=== PATIENT | male | born 1995 | race African-American/Black ===

== ENCOUNTER 2019-02-18 17:18 | Inpatient (IN) | payer OTHER ==
[~2019-02-18 17:18] MED LIST: ISOVUE-370 76%-LOCM 1 ML ONE
[2019-02-18] MEDS ORDERED: Ondansetron PF 4 MG/2 ML Vial ONE (17:44)
[2019-02-18] MEDS ORDERED: Morphine 4 MG/ML VIAL ONE (17:50)
[2019-02-18] MEDS ORDERED: Ketorolac Tromethamine 30 MG/ML VIAL ONE (18:00)
[2019-02-18 18:16] LABS: #Lymphocytes 1.6 thou/uL (1.20-3.40); #Monocytes 0.8 thou/uL (0.11-0.59); #Neutrophils 5.4 thou/uL (1.40-6.50); %Basophils 0.5 % (0.0-1.0); %Eosinophils 0.4 % (0.0-10.0); %Monocytes 10.3 % (0.0-10.0); %Neutrophils 68.7 % (42.0-75.0); Hemoglobin 12.2 g/dL (14.0-18.0); Mean Corpuscular Hemoglobin 27.3 pg (27.0-31.0); Mean Corpuscular Volume 85.2 fL (78.0-98.0); Platelet Count 292 thou/uL (130-400); RBC Distribution Width 13.7 % (11.5-14.5); Red Blood Cell (RBC) Count 4.47 mill/uL (4.70-6.10); White Blood Cell (WBC) Count 7.8 thou/uL (4.8-10.8)
[2019-02-18 18:28] LABS: ALT (SGPT) 7 U/L (8-55); AST (SGOT) 20 U/L (5-34); Albumin 4.7 g/dL (3.5-5.0); Alkaline Phosphatase 119 U/L (40-150); Anion Gap 18 mmol/L (10-20); BUN (Urea Nitrogen) 12 mg/dL (8.9-20.6); Calc. Creatinine Clearance 0 mL/min (70-130); Calcium 9.9 mg/dL (7.8-10.44); Carbon Dioxide 21 mmol/L (22-29); Chloride 106 mmol/L (98-107); Estimated GFR-MDRD Greater than 90; Globulin 2.8 g/dL (2.4-3.5); Glucose 102 mg/dL (70-105); Lipase 700 U/L (8-78); Potassium 3.5 mmol/L (3.5-5.1); Protein, Total 7.5 g/dL (6.0-8.3); Sodium 141 mmol/L (136-145)
[2019-02-18] MEDS ORDERED: Haloperidol Lactate 5 MG/ML VIAL ONE (19:13)
[2019-02-18] MEDS ORDERED: diphenhydrAMINE 50 MG/ML VIAL ONE (19:13)
[2019-02-18 19:54] LABS: Clarity CLEAR (Clear); Nitrite Negative (Negative); Specific Gravity, Urine 1.015 (1.005-1.030)
[2019-02-18 19:55] LABS: Bilirubin Negative (Negative); Blood, Urine Negative (Negative); Glucose, Urine (Dipstick) Negative (Negative); Protein, Urine (Dipstick) Negative (Neg-Trace)
[2019-02-18 20:00] LABS: Leukocyte Negative (Negative)
[2019-02-18 20:08] LABS: Bacteria/HPF None Seen HPF (None Seen); Hyaline Casts/LPF NONE SEEN LPF (0-3 Hyaline); RBC/HPF None Seen HPF (0-3); Squamous Epithelial 0-3 HPF (0-3); WBC/HPF None Seen HPF (0-3)
--- NOTE | 2019-02-18 20:28 | CT ---
CT ABDOMEN AND PELVIS WITH IV CONTRAST: Technique: Multiple axial tomograms were obtained through the abdomen and pelvis with IV enhancement. Indications: Fever, abdominal pain. FINDINGS: Lung bases clear. Patient is post cholecystectomy. There is mild intrahepatic biliary duct prominence. The extrahepatic bile duct appears normal. Correlate with liver function test. Spleen and pancreas unremarkable. Adrenal glands and kidneys unremarkable. Urinary bladder is distended and appears unremarkable. Small bowel loops are normal caliber. There is radiopaque suture within the herrera of a small bowel lo op anterior mid abdomen which may represent adjacent gastric jejunostomy anastomosis. Recommend clini bonita correlation regarding surgical history of bypass in this patient. There is focal dilatation of the colon at the splenic flexure of uncertain significance. The more distal left colon and sigmoid colon is nondistended. Images through the pelvis unremarkable. No adenopathy identified. IMPRESSION: 1. Patient is post cholecystectomy. There is mild intrahepatic biliary duct dilatation of uncertain s ignificance. Recommend correlation with liver function test. 2. Evidence of post-operative changes involving small bowel and stomach in the anterior abdomen. Richard mmend clinical correlation regarding surgical history. 3. Focal dilatation of the colon at the splenic flexure with prominent stool in this part of the colo n. No evidence of mural thickening or inflammation. Recommend clinical correlation. POS: AGW
--- NOTE | 2019-02-18 20:45 | PDOC.FPRHP ---
- History of Present Illness Chief Complaint: abdominal pain History of Present Illness: 23yo freedom impaired male with pmh of chronic pancreatitis presents with 1 day hx of diffuse abdominal pain of "unexplainable" quality and 8/10 on presentation now 2-3/10 after some morphine. Onset was after a meal. Also reports related Nausea/vomiting/decreased PO intake. No upper or lower GIB. No other transforming factors. Denies any other complaints as listed in ROS. Pt was s/p morphine, haldol, and benadryl in ED and was thus a difficult historian and unable to provide much medical hx. Mostly gained from [facility] chart review. ED Course: 3L NS, morphine, zofran, phenergan, toradol, haldol, benadryl - Allergies/Adverse Reactions Allergies Allergy/AdvReac Type Severity Reaction Status Date / Time No Known Drug Allergies Allergy Verified 02/18/19 22:13 - Home Medications Medication Instructions Recorded Confirmed Type Ferrous Sulfate [Feosol] 325 mg PO TID 02/18/19 02/18/19 History Pancrelipase 50098 [Creon DR 1 capsule PO TID-WM 02/18/19 02/18/19 History 12,000 Units] Sucralfate [Carafate] 1 gm PO TID 02/18/19 02/18/19 History Ondansetron HCl [Zofran] 4 mg PO Q6HR PRN #20 tab 02/20/19 Rx - History PMHx: SMA, iron deficiency anemia, chronic pancreatitis, latent syphillis PSHx: gastric bypass surgery (unknown reason, not weight loss) FHx: non contributory Social: Incarcerated inmate. no smoking, former marijuana use, no alcohol. Allergy: NKDA CODE: FULL - Review of Systems General: denies: night sweats, fatigue Eyes: denies: eye pain, vision changes ENT: denies: nasal congestion, rhinorrhea Respiratory: denies: cough, shortness of breath Cardiovascular: denies: chest pain, edema Gastrointestinal: reports: nausea, vomiting, abdominal pain Genitourinary: denies: dysuria, polyuria Skin: denies: lesions, jaundice Musculoskeletal: denies: pain, tenderness Neurological: denies: syncope, seizure Psychological: denies: anxiety, depression - Vital signs BP: 141/107, Pulse: 91, Resp: 14, Temp: 99.8 (Oral), Pain: 5, O2 sat: 98 on Room Air, Time: 02/18/2019 19:15. weight: 70kg - Physical Exam Constitutional: awake, alert and oriented, other (moderate distress 2/2 pain) HEENT: EOMI, conjunctiva clear, grossly normal vision, grossly normal hearing, MMM Neck: supple, trachea midline Chest: no-tender to palpation Heart: RRR, normal S1/S2 Lungs: CTAB, no respiratory distress Abdomen: soft, other (moderate epigastric TTP, no rebound tenderness no guarding ) Musculoskeletal: normal structure, normal tone Neurological: no focal deficit, normal sensation Skin: no rash/lesions, good turgor Heme/Lymphatic: no purpura, no petechia Psychiatric: normal mood and affect, intact recent and remote memory FMR H&P: Results - Labs Result Diagrams: 02/20/19 07:39 02/18/19 18:05 Lab results: WBC 7.8 thou/uL (4.8-10.8) 02/18/19 18:05 Hgb 12.2 g/dL (14.0-18.0) L 02/18/19 18:05 Hct 38.1 % (42.0-52.0) L 02/18/19 18:05 MCV 85.2 fL (78.0-98.0) 02/18/19 18:05 Plt Count 292 thou/uL (130-400) 02/18/19 18:05 Neutrophils % 68.7 % (42.0-75.0) 02/18/19 18:05 Sodium 141 mmol/L (136-145) 02/18/19 18:05 Potassium 3.5 mmol/L (3.5-5.1) 02/18/19 18:05 Chloride 106 mmol/L (98-107) 02/18/19 18:05 Carbon Dioxide 21 mmol/L (22-29) L 02/18/19 18:05 BUN 12 mg/dL (8.9-20.6) 02/18/19 18:05 Creatinine 1.17 mg/dL (0.7-1.3) 02/18/19 18:05 Glucose 102 mg/dL (70-105) 02/18/19 18:05 Lactic Acid 3.3 mmol/L (0.5-2.2) H 02/18/19 18:05 Calcium 9.9 mg/dL (7.8-10.44) 02/18/19 18:05 Total Bilirubin 1.0 mg/dL (0.2-1.2) 02/18/19 18:05 AST 20 U/L (5-34) 02/18/19 18:05 ALT 7 U/L (8-55) L 02/18/19 18:05 Alkaline Phosphatase 119 U/L (40-150) 02/18/19 18:05 Serum Total Protein 7.5 g/dL (6.0-8.3) 02/18/19 18:05 Albumin 4.7 g/dL (3.5-5.0) 02/18/19 18:05 Lipase 700 U/L (8-78) H 02/18/19 18:05 Urine Ketones 80 mg/dL (Negative) H 02/18/19 19:32 Urine Blood Negative (Negative) 02/18/19 19:32 Urine Nitrite Negative (Negative) 02/18/19 19:32 Ur Leukocyte Esterase Negative (Negative) 02/18/19 19:32 Urine RBC None Seen HPF (0-3) 02/18/19 19:32 Urine WBC None Seen HPF (0-3) 02/18/19 19:32 Ur Squamous Epith Cells 0-3 HPF (0-3) 02/18/19 19:32 Urine Bacteria None Seen HPF (None Seen) 02/18/19 19:32 FMR H&P: A/P - Problem List (1) Pancreatitis Status: Acute Code(s): K85.90 - ACUTE PANCREATITIS WITHOUT NECROSIS OR INFECTION, UNSP (2) Fever Status: Acute Code(s): R50.9 - FEVER, UNSPECIFIED (3) Superior mesenteric artery syndrome Status: Acute Code(s): K55.1 - CHRONIC VASCULAR DISORDERS OF INTESTINE (4) Chronic pancreatitis Status: Acute Code(s): K86.1 - OTHER CHRONIC PANCREATITIS (5) Latent syphilis Status: Acute Code(s): A53.0 - LATENT SYPHILIS, UNSPECIFIED EARLY OR LATE - Plan Acute on chronic pancreatitis A- hx of chronic pancreatitis [facility], pt unable to give any details of disease. Lipase and physical exam indicate acute exacerbation though CT is unremarkable. P- morphine prn -aggressive IVF -LDH to calculate ZAK criteria -NPO, possibly advance diet slowly tomorrow Fever A- one fever up to 100.9 that spontaneously resolved, sirs + likely 2/2 pancreatits and pain, CT shows no evidence of infectious etiology, exam unremarkable P- will get procal and monitor vitals -if fever again, will get BCx and start ABX iron deficiency anemia A- hgb 12.2, [facility] records report iron deficiency anemia P- will monitor h/h SMA syndrome -MD aware latent syphillis -MD aware CODE: full FMR H&P: Upper Level - Pertinent history 23 yr old male with PMH of chronic pancreatitis, SMA syndrome s/p gastric bypass with 1 day history of pain after eating [facility]. Pain improved to 2 /10 pain from 8/10 after pain meds in the ER. + Nausea and vomiting. No diarrhea. Non bloody vomit. Had multiple bouts of vomiting in ER which improved after 2 doses of phenergan, zofran, hadol and benadryl. Afebrile. Also hx of iron def anemia. Patient denies chest pain, SOB, coughing, dysuria. - Pertinent findings Pulse: 65 Temp: 97.5 Tmax 100.9 Gen: No acute distress, patient is very drowsy Heart: RRR, no M/R/G Lungs: CTAB, No wheezing, rhales, rhonchi. no resp distress Abd: soft, mild epigatric tenderness, no guarding or rebound Ext: no edema in BLE Neuro: drowsy but arrousable, oriented to person, place, and month/year. CT abd: mild intrahepatic duct dilatation, post cholecystectomy, focal dilatation of colon at splenic flexure with stool burden. - Plan Date/Time: 02/18/192044 I, [Nubia Barnett], have evaluated this patient and agree with findings/plan as outlined by internal combustion engine assembler resident. Pertinent changes/additions are listed here. 23 yr old male with PMH of SMA syndrome and chronic pancreatitis. acute on chronic pancreatitis -NPO until vomiting improved and initiate low fat diet -aggressive fluids -admit to medical obs -PRN meds for vomiting/nausea -will defer further workup request outside records -obtain LDH for zak criteria calculation however even if elevated, still a zak of 1 which is unlikely severe pancreatitis Fever -sirs criteria met -no focal findings for infection -CT without evidence for pancreatic cyst/abscess -if refevers, will obtain blood culture and empiric abx HX of SMA syndrome Dispo: likely > 2 midnights but dependent on clinica course. Addendum - Attending - Attending Attestation Date/Time: 02/22/19 0001 I personally evaluated the patient and discussed the management with Dr. Mae on 02/18/19. I agree with the History, Examination, Assessment and Plan documented above with any addition or exceptions noted below. 23 y.o. BM with h/o Chronic Pancreatitis, SMA syndrome s/p Gastric Bypass (Ladi- en-Y?) with abdominal pain, improved with Morphine. Lipase 700. Zak's 0 but no LDH done yet. NPO, IVF, analgesia prn.
[2019-02-18] MEDS ORDERED: Morphine 2 MG/ML SYRINGE SLOW IVP PRN (22:10)
[2019-02-18] MEDS: Lactated Ringer's 1,000 ML IV SCH (22:35)
[2019-02-18 23:04] LABS: Lactic Acid 0.8 mmol/L (0.5-2.2)
[2019-02-19] MEDS: Morphine 4 MG/ML VIAL SLOW IVP PRN ×4 (00:25→13:11)
[2019-02-19] MEDS: Ondansetron PF 4 MG/2 ML Vial IVP PRN ×2 (01:20→08:04)
[2019-02-19] MEDS: Lactated Ringer's 1,000 ML IV SCH ×5 (04:58→22:35)
--- NOTE | 2019-02-19 06:58 | PDOC.FM ---
- Subjective Subjective: Continuing to have nausea, vomiting and abdominal pain. Has hx of SMA syndrome that he reports feels the same as when he has pancreatitis. Reports he was told to gain weight which would resolve the symptoms. Pain is epigastric. Denies fever, chills. - Objective MAR Reviewed: Yes Vital Signs & Weight: Vital Signs (12 hours) Temp Pulse Resp BP Pulse Ox 02/19/19 04:02 99.6 F 87 16 155/83 H 100 02/18/19 21:50 98.6 F 120 H 18 124/86 99 Weight Weight 74.843 kg I&O: 02/17/19 02/18/19 02/19/19 06:59 06:59 06:59 Intake Total 1680 Output Total 1300 Balance 380 Result Diagrams: 02/19/19 07:58 02/18/19 18:05 Phys Exam - Physical Examination Vomiting HEENT: moist MMs Neck: supple Respiratory: no wheezing, clear to auscultation bilateral Cardiovascular: RRR, no significant murmur Gastrointestinal: soft, positive bowel sounds epigastric tenderness and LLQ tenderness Musculoskeletal: no edema Neurological: moves all 4 limbs Psychiatric: normal affect, A&O x 3 Skin: no rash Dx/Plan (1) Chronic pancreatitis Code(s): K86.1 - OTHER CHRONIC PANCREATITIS Status: Acute (2) Fever Code(s): R50.9 - FEVER, UNSPECIFIED Status: Acute (3) Latent syphilis Code(s): A53.0 - LATENT SYPHILIS, UNSPECIFIED EARLY OR LATE Status: Acute (4) Pancreatitis Code(s): K85.90 - ACUTE PANCREATITIS WITHOUT NECROSIS OR INFECTION, UNSP Status: Acute (5) Superior mesenteric artery syndrome Code(s): K55.1 - CHRONIC VASCULAR DISORDERS OF INTESTINE Status: Acute - Plan Plan: Mr Masters is a 23yo male with pmh of SMA syndrome, chronic pancreatitis and iron def anemia presenting with acute pancreatitis Acute on chronic pancreatitis - CT: nml pancreas, intrahepatic duct dilation - Lipase 700. Epigastric tenderness - Morphine PRN - LR @210 - ZAK: 0 - NPO Elevated Lactic Acid, resolved - Initially 3.3 Fever - Tmax 100.9 resolved, likely 2/2 pancreatits and pain, CT shows no evidence of infectious etiology - Procal pending - If fevers again, will get BCx and start ABX Iron deficiency anemia - Hgb 12.2, known hx of iron def anemia - Continue to monitor h/h SMA syndrome Latent syphillis Code Status: FULL DVT ppx: Lovenox PCP: J[facility], [facility] Addendum - Attending - Attending Attestation Date/Time: 02/19/19 [id number] I personally evaluated the patient and discussed the management with Dr. Lucero. I agree with the History, Examination, Assessment and Plan documented above with any addition or exceptions noted below. Pt has been tachycardic and has a leukocytosis. Will start zosyn. Draw blood cultures if he spikes fever. He notes pain worsens when he is vomiting. Will also add reglan. Get CXR to look for other signs of infection.
[2019-02-19] MEDS: Enoxaparin Sodium 40 MG/0.4 ML SYRINGE SC SCH (08:06)
[2019-02-19 08:13] LABS: #Eosinphils 0.1 thou/uL (0.0-0.7); #Monocytes 0.6 thou/uL (0.11-0.59); %Eosinophils 0.6 % (0.0-10.0); %Lymphocytes 8.3 % (21.0-51.0); %Monocytes 4.9 % (0.0-10.0); %Neutrophils 86.2 % (42.0-75.0); Hemoglobin 11.9 g/dL (14.0-18.0); Mean Corpuscular HGB CONC 31.7 g/dL (32.0-36.0); Mean Platelet Volume 8.9 fL (7.4-10.4); Platelet Count 237 thou/uL (130-400); RBC Distribution Width 13.8 % (11.5-14.5); Red Blood Cell (RBC) Count 4.41 mill/uL (4.70-6.10); White Blood Cell (WBC) Count 11.6 thou/uL (4.8-10.8)
[2019-02-19 09:22] LABS: RBC Morphology Normal
[2019-02-19] MEDS ORDERED: Metoclopramide 10 MG/10 ML UDCUP PO PRN (11:38)
[2019-02-19] MEDS: Piperacillin/Tazobactam 3.375 GM in Sodium Chloride 0.9% 100 ML IVPB SCH ×3 (13:09→23:46)
--- NOTE | 2019-02-19 15:08 | RAD ---
PA AND LATERAL CHEST: HISTORY: Cough. FINDINGS: Heart size and mediastinum are within normal limits. The lungs are clear of any infiltrates. No sig nificant bony findings. IMPRESSION: No active intrathoracic disease. POS: [facility]
[2019-02-20] MEDS: Piperacillin/Tazobactam 3.375 GM in Sodium Chloride 0.9% 100 ML IVPB SCH ×3 (05:42→17:09)
--- NOTE | 2019-02-20 06:51 | PDOC.FM ---
- Subjective Subjective: Feeling much better today. Reports the last time he vomited was yesterday morning. Would like to try some clear liquids this morning. Abdominal pain is improved. - Objective MAR Reviewed: Yes Vital Signs & Weight: Vital Signs (12 hours) Temp Pulse Resp BP Pulse Ox 02/20/19 04:00 97.9 F 71 18 111/67 100 02/19/19 20:00 97.7 F 75 18 109/62 98 Weight Weight 74.843 kg I&O: 02/18/19 02/19/19 02/20/19 06:59 06:59 06:59 Intake Total 1680 Output Total 1300 Balance 380 Result Diagrams: 02/20/19 07:39 02/18/19 18:05 Phys Exam - Physical Examination Constitutional: NAD HEENT: moist MMs Neck: supple Respiratory: no wheezing, clear to auscultation bilateral Cardiovascular: RRR, no significant murmur Gastrointestinal: soft, non-tender, positive bowel sounds Musculoskeletal: no edema Neurological: moves all 4 limbs Psychiatric: normal affect, A&O x 3 Skin: no rash Dx/Plan (1) Chronic pancreatitis Code(s): K86.1 - OTHER CHRONIC PANCREATITIS Status: Acute (2) Fever Code(s): R50.9 - FEVER, UNSPECIFIED Status: Acute (3) Latent syphilis Code(s): A53.0 - LATENT SYPHILIS, UNSPECIFIED EARLY OR LATE Status: Acute (4) Pancreatitis Code(s): K85.90 - ACUTE PANCREATITIS WITHOUT NECROSIS OR INFECTION, UNSP Status: Acute (5) Superior mesenteric artery syndrome Code(s): K55.1 - CHRONIC VASCULAR DISORDERS OF INTESTINE Status: Acute - Plan Plan: Mr Masters is a 23yo male with pmh of SMA syndrome, chronic pancreatitis and iron def anemia presenting with acute pancreatitis Sepsis - Tmax 100.[address] abd: No evidence of infection - Procal <0.02 - Started on Zosyn 02/19 after pt became tachycardic and developed leukocytosis - If fevers again, will get BCx and procal Acute on chronic pancreatitis - CT: nml pancreas, intrahepatic duct dilation - Lipase 700. Epigastric tenderness - Morphine PRN - LR @100 - ZAK: 0 - Advance to clear liquid diet Elevated Lactic Acid, resolved - Initially 3.3 Iron deficiency anemia - Hgb 12.2, known hx of iron def anemia - Continue to monitor h/h SMA syndrome Latent syphillis Code Status: FULL DVT ppx: Lovenox PCP: JIM, [facility] Addendum - Attending - Attending Attestation Date/Time: 02/20/19 [id number] I personally evaluated the patient and discussed the management with Dr. Lucero. I agree with the History, Examination, Assessment and Plan documented above with any addition or exceptions noted below. Pt is feeling much better. Will advance diet and if he tolerates this will likely d/c home.
[2019-02-20 07:58] LABS: #Lymphocytes 1.5 thou/uL (1.20-3.40); #Monocytes 0.8 thou/uL (0.11-0.59); #Neutrophils 3.6 thou/uL (1.40-6.50); %Basophils 0.3 % (0.0-1.0); %Eosinophils 0.4 % (0.0-10.0); %Lymphocytes 25.6 % (21.0-51.0); %Neutrophils 60.7 % (42.0-75.0); Hemoglobin 9.9 g/dL (14.0-18.0); Mean Corpuscular HGB CONC 30.9 g/dL (32.0-36.0); Mean Corpuscular Hemoglobin 27.1 pg (27.0-31.0); Mean Corpuscular Volume 87.6 fL (78.0-98.0); Mean Platelet Volume 7.6 fL (7.4-10.4); Platelet Count 269 thou/uL (130-400); RBC Distribution Width 13.5 % (11.5-14.5); Red Blood Cell (RBC) Count 3.65 mill/uL (4.70-6.10)
[2019-02-20] MEDS: Lactated Ringer's 1,000 ML IV SCH ×2 (08:59→09:00)
[2019-02-20] MEDS: Enoxaparin Sodium 40 MG/0.4 ML SYRINGE SC SCH (09:00)
[2019-02-20] MEDS ORDERED: Lactated Ringer's 1,000 ML IV SCH (10:15)
[2019-02-20 16:32] VITALS: BP 135/68; TEMP 98
--- NOTE | 2019-02-21 04:59 | DIS ---
DATE OF ADMISSION: 02/18/2019 DATE OF DISCHARGE: 02/20/2019 RESIDENT: Sivan Lucero, PGY-1. ADMITTING ATTENDING: DISCHARGE ATTENDING: Gely Welch MD CONSULTS: None. PROCEDURES: 1. Abdominal and pelvis CT: The patient is post cholecystectomy. There is mild intrahepatic biliary duct dilation of uncertain significance. Recommend correlation with liver function test. Evidence of postoperative changes involving small bowel and stomach in the anterior abdomen. Recommend clinical correlation regarding surgical history. Focal dilation of the colon at the splenic flexure with prominent stool in this part of the colon. No evidence of mural thickening or inflammation. Recommend clinical correlation. Study performed on 02/18/2019. 2. On 02/18/2019, chest x-ray unremarkable. PRIMARY DIAGNOSES: 1. Acute on chronic pancreatitis. 2. Sepsis versus reactive inflammation. SECONDARY DIAGNOSES: 1. Elevated lactic acid, resolved. 2. Iron deficiency anemia. 3. Superior mesenteric artery syndrome. 4. Latent syphilis. DISCHARGE MEDICATIONS: 1. Ferrous sulfate 325 mg t.i.d. 2. Zofran 4 mg q.6 hours p.r.n. for nausea, vomiting. 3. Creon one capsule t.i.d. 4. Carafate 1 g t.i.d. HISTORY OF PRESENT ILLNESS/HOSPITAL COURSE: Mr. Masters is a 23-year-old male who presented from [facility] living with past medical history of chronic pancreatitis, who presented with 1-day of abdominal pain, improved with morphine, started after a meal. He has had recent nausea, vomiting, decreased p.o. intake. The patient received morphine, Haldol, Benadryl, Zofran, Phenergan, and 3 L of normal saline in the ED. The patient does have a past medical history of gastric bypass surgery. It is unclear why this was done. The patient reports it has not done for weight loss. Vital signs at admission; blood pressure 141/107, pulse 91, respirations 14, and temperature 99.8, and 98% on room air. He did have some moderate epigastric tenderness to palpation. No rebound or guarding. CT showed focal dilation of the colon at the splenic flexure, no pancreatic inflammation. Lipase was 700. Procalcitonin less than 0.02. Urine showed no sign of infection. The patient's lactic acid was 3.3. This was decreased to 0.8 after fluids. Hemoglobin 12.2, 9.9 at discharge after aggressive IV fluid. The patient is diagnosed with acute on chronic pancreatitis, although his symptoms may overlap with SMA syndrome as the patient is not able to tell the difference in symptoms as they present very similarly. He is treated with p.r.n. morphine, Phenergan, Zofran, and aggressive IV fluids. His Ezekiel score is 0. He was able to tolerate regular diet prior to discharge and was no longer needing pain medication or antiemetics. The patient did have one isolated temperature of 100.9 and remained tachycardic to 120 as well as developed leukocytosis of 11.6. White blood cell count is 7.8 at admission and 6 at discharge. Due to the patient meeting sepsis criteria, he was started on Zosyn. The patient did not throughout the rest of the course of the hospitalization, and as stated above, procalcitonin is 0.02. This is likely just a reaction to inflammation of pancreatitis. Therefore, the patient was not discharged with antibiotics. The patient has a known history of iron deficiency anemia, hemoglobin 12.2, 9.9 at discharge. This can be monitored in the unit. DISPOSITION: Stable. DISCHARGE INSTRUCTIONS: 1. Location: [facility]. 2. Diet: As tolerated low fat. 3. Activity: No restrictions. 4. Followup: Follow up with the unit physician if needs arise. Job ID: [id number]
== END 2019-02-20 18:40 | DRG 439 ==
LOC: ERS 17:18 → T4-A 20:44
PROVIDERS: ADMIT Family Medicine; ATTEND Family Medicine
DX: K85.90 Acute pancreatitis without necrosis or infection, unspecified (principal); K55.1 Chronic vascular disorders of intestine; K86.1 Other chronic pancreatitis; A53.0 Latent syphilis, unspecified as early or late; D50.9 Iron deficiency anemia, unspecified
CPT/HCPCS: 36415; 71046; 74177; 80053; 81003; 81015; 83605; 83615; 83690; 84145; 85025; 93005; 96361; 96374; 96375; J1200; J1630; J1650; J1885; J2270; J2405; J2543; J3490